=== PATIENT | female | born 1975 | race Hispanic/Latino ===

== ENCOUNTER 2024-08-27 13:47 | Emergency (ER) | payer BC, OTHER ==
[~2024-08-27] VITALS: Ht 147.3 cm; Wt 88.5 kg
[2024-08-27 14:00] VITALS: TEMP 98.6
[2024-08-27 15:32] LABS: BASOPHILS % 0.2 % (0.0-1.0); EOSINOPHILS % 0.1 % (0.0-6.0); HEMATOCRIT 52.6 % (34.2-44.1); HEMOGLOBIN 17.7 g/dL (12.0-16.0); MEAN CORPUSCULAR HEMOGLOBIN 29.4 pg (28-32); MEAN CORPUSCULAR HGB CONC 33.7 g/dL (31-35); MEAN CORPUSCULAR VOLUME 87.4 fL (81-99); MONOCYTES # (AUTO) 0.5 (0.2-0.8); MONOCYTES % 6.3 % (4.4-11.3); NEUTROPHILS # (AUTO) 6.5 (2.1-6.9); NEUTROPHILS % 80.7 % (38.7-80.0); PLATELET COUNT 172 x10e3/uL (140-360); RED BLOOD COUNT 6.02 x10e6/uL (3.6-5.1); RED CELL DISTRIBUTION WIDTH 12.2 % (11.7-14.4); WHITE BLOOD COUNT 8.06 x10e3/uL (4.8-10.8)
[2024-08-27] MEDS: SODIUM CHLORIDE 0.9% 1000ML 1,000 ML IV SCH (15:42)
[2024-08-27] MEDS: DIPHENHYDRAMINE HCL 25 MG CAP PO ONE (15:43)
[2024-08-27] MEDS: METOCLOPRAMIDE HCL 10 MG/2ML VIAL IV ONE (15:43)
[2024-08-27] MEDS: KETOROLAC TROMETHAMINE 30 MG/ML VIAL IV STA (15:43)
[2024-08-27 15:52] LABS: ALBUMIN 4.3 g/dL (3.5-5.0); ALBUMIN/GLOBULIN RATIO 1.1 (0.8-2.0); BILIRUBIN,TOTAL 1.5 mg/dL (0.2-1.2); CALCIUM 9.6 mg/dL (8.4-10.2); CREATININE, SERUM 0.89 mg/dL (0.57-1.11); TOTAL PROTEIN 8.1 g/dL (6.5-8.1)
[2024-08-27 16:58] VITALS: PULSE 93; RESP 16; O2SAT 96
== END 2024-08-27 17:15 | disposition home or self-care (01) ==
LOC: ER 13:57
DX: R51.9 Headache, unspecified (principal); R11.2 Nausea with vomiting, unspecified; I10 Essential (primary) hypertension; R94.31 Abnormal electrocardiogram [ECG] [EKG]
CPT/HCPCS: 36415; 70450; 80053; 83880; 85025; 93005; 99284; J1885; J2765; J7030